=== PATIENT | male | born 1945 | race African-American/Black ===

== ENCOUNTER 2017-05-15 16:35 | Emergency (ER) | payer OTHER ==
[~2017-05-15] VITALS: Ht 182.9 cm; Wt 90.7 kg
[2017-05-15 16:35] VITALS: BP 143/74
[~2017-05-15 16:35] MED LIST: FLEXERIL PO; HYDROCHLOROTHIA25 M1 PO; MICARDIS 20MG T20 M1; MICARDIS 80 MG80 MG PO; NAPROSYN500 MG PO; NORCO 5-325 TA1 EACH PO; VALIUM2 MG PO; ZANTAC 150MG T150 M1 PO; [UNRECOGNIZED DRUG - OTHER]
[2017-05-15] MEDS ORDERED: MOBIC7.5 MG PO (17:07)
== END 2017-05-15 17:28 | disposition home or self-care (01) ==
LOC: ER 16:35
DX: M70.862 Other soft tissue disorders related to use, overuse and pressure, left lower leg (principal); I10 Essential (primary) hypertension; Z98.890 Other specified postprocedural states; Z87.891 Personal history of nicotine dependence

== ENCOUNTER 2017-07-25 18:40 | Emergency (ER) | payer OTHER ==
[~2017-07-25] VITALS: Ht 182.9 cm; Wt 90.7 kg
--- NOTE | ~2017-07-25 | EKG ---
[address] [address] [place] [address] ELECTROCARDIOGRAM REPORT Name: TREE SIMONS Room #: DEP JAVY Lawrence#: [id number] Admission: 07/25/17 Attend Phys: Discharge: 07/25/17 Date of : 45 Report #: [id number] THIS REPORT FOR: //name// [facility] ED Test Date: 2017-07-25 Test Time: 18:57:52 Pat Name: TREE SIMONS Department: Room: Gender: [employer]ending [employer]: [facility] : 1945 Requested By: Judith Nowak Order Number: [id number] MD: Raghu Smith Measurements Intervals [place] Rate: 74 P: 76 DC: 211 QRS: -42 QRSD: 126 T: 92 QT: 396 QTc: 440 Interpretive Statements Sinus rhythm Nonspecific IVCD with LAD Nonspecific T abnormalities, lateral leads Compared to ECG 10/21/2010 23:53:39 Intraventricular conduction delay now present T-wave abnormality now present Electronically Signed On 07-27-2017 8:27:10 CDT by Raghu Smith [email or web address] <ELECTRONICALLY SIGNED> By: Raghu Smith MD, [facility] 07/27/17 0827 56 56 Raghu Smith MD, [facility] /EPI
[~2017-07-25 18:40] MED LIST changes: +MOBIC7.5 MG PO
[2017-07-25 19:46] LABS: ABSOLUTE NEUTROPHILS 7.1 thou/uL (1.4-8.2); BASOPHILS 0.7 % (0.0-2.0); EOSINOPHILS 2.8 % (0.0-3.0); HEMATOCRIT 38.8 % (42.0-52.0); LYMPHOCYTES 30.5 % (24.0-44.0); MCH 31.5 pg (26.0-34.0); MCHC 33.4 g/dL (28.0-37.0); MCV 94.3 fL (80.0-100.0); MONOCYTES 5.5 % (1.0-8.0); PLATELET COUNT 263 thou/uL (150-400); POLYS 60.5 % (36.0-66.0); RBC 4.11 mil/uL (4.50-6.00); RDW 14.1 % (10.5-14.5); WBC 11.7 thou/uL (4.0-11.0)
[2017-07-25 19:50] LABS: MANUAL DIFF NO
[2017-07-25 19:56] LABS: ANION GAP 7 mmol/L (7-16); BUN 17 mg/dL (7-18); CALCIUM 9.4 mg/dL (8.5-10.1); CHLORIDE 107 mmol/L (98-107); CO2 28 mmol/L (21-32); GLUCOSE 106 mg/dL (74-106); POTASSIUM 3.4 mmol/L (3.5-5.1); SODIUM 142 mmol/L (136-145)
[2017-07-25 20:13] LABS: ALBUMIN 3.5 g/dL (3.4-5.0); ALKALINE PHOSPHATASE 64 U/L (46-116); DIRECT BILIRUBIN < 0.1 mg/dL (<0.1-0.3); SGOT 19 U/L (15-37); SGPT 31 U/L (30-65); TOTAL BILIRUBIN 0.3 mg/dL (<0.1-1.0); TOTAL PROTEIN 6.7 g/dL (6.4-8.2); TROPONIN-I < 0.04 ng/mL (<0.04-0.07)
[2017-07-25] MEDS ORDERED: ZOFRAN ODT4 MG PO (20:18)
[2017-07-25] MEDS ORDERED: PHENERGAN 25 MG25 M1 PO (20:18)
[2017-07-25 21:10] VITALS: BP 161/87
== END 2017-07-25 21:11 | disposition home or self-care (01) ==
LOC: ER 18:40
PROVIDERS: Emergency Medicine
DX: R10.9 Unspecified abdominal pain (principal); R11.2 Nausea with vomiting, unspecified; R68.83 Chills (without fever); I10 Essential (primary) hypertension; Z90.89 Acquired absence of other organs; Z87.891 Personal history of nicotine dependence